=== PATIENT | male | born 1960 | race Caucasian/White ===

== ENCOUNTER 2019-02-07 08:50 | Observation (INO) | payer OTHER ==
[2019-02-05 15:15] LABS: BASOPHILS # (AUTO) 0.1 (0.0-0.1); BASOPHILS % 0.7 % (0.0-1.0); EOSINOPHILS # (AUTO) 0.1 (0.0-0.4); EOSINOPHILS % 0.8 % (0.0-6.0); HEMATOCRIT 43.1 % (38.2-49.6); HEMOGLOBIN 14.6 g/dL (14.0-18.0); LYMPHOCYTES # (AUTO) 2.3 (1.0-3.2); LYMPHOCYTES % 32.5 % (18.0-39.1); MEAN CORPUSCULAR HEMOGLOBIN 31.1 pg (28-32); MEAN CORPUSCULAR HGB CONC 33.9 g/dL (31-35); MEAN CORPUSCULAR VOLUME 91.9 fL (81-99); MONOCYTES # (AUTO) 0.5 (0.2-0.8); MONOCYTES % 6.5 % (4.4-11.3); NEUTROPHILS # (AUTO) 4.2 (2.1-6.9); NEUTROPHILS % 59.2 % (38.7-80.0); PLATELET COUNT 142 x10e3/uL (140-360); RED BLOOD COUNT 4.69 x10e6/uL (4.3-5.7); RED CELL DISTRIBUTION WIDTH 12.9 % (11.7-14.4)
[2019-02-05 15:31] LABS: INR 0.97; PARTIAL THROMBOPLASTIN TIME 27.7 seconds (23.8-35.5); PROTHROMBIN TIME 13.4 seconds (11.9-14.5)
[2019-02-05 15:36] LABS: ANION GAP 9.8 mmol/L (8-16); BLOOD UREA NITROGEN 11 mg/dL (7-26); BUN/CREATININE RATIO 13 (6-25); CALCIUM 8.9 mg/dL (8.4-10.2); CARBON DIOXIDE 27 mmol/L (22-29); CHLORIDE 104 mmol/L (98-107); CREATININE, SERUM 0.86 mg/dL (0.72-1.25); EST GLOMERULAR FILTRATION RATE > 60 ML/MIN (60-); GLUCOSE 81 mg/dL (74-118); POTASSIUM 3.8 mmol/L (3.5-5.1); SODIUM 137 mmol/L (136-145)
--- NOTE | 2019-02-05 15:47 | Diagnostic Imaging Report ---
EXAMINATION: CHEST 2 VIEWS INDICATION: Pre-admit. COMPARISON: None FINDINGS: TUBES and LINES: None. LUNGS: Lungs are well inflated. Lungs are clear. There is no evidence of pneumonia or pulmonary edema. PLEURA: No pleural effusion or pneumothorax. HEART AND MEDIASTINUM: The cardiomediastinal silhouette is unremarkable. BONES AND SOFT TISSUES: No acute osseous abnormality. UPPER ABDOMEN: No free air under the diaphragm. IMPRESSION: No acute radiographic abnormality. Signed by: Dr. Faustino Henderson MD on 02/05/2019 3:43 PM
[~2019-02-07] VITALS: Ht 172.7 cm; Wt 82.6 kg
[~2019-02-07 08:50] MED LIST: ACETAMINOPHEN 1000 MG/100 ML 100 ML IV ONE; DOXYCYCLINE HY100 MG PO; LIDOCAINE HCL (LTA) 4 ML SOLN ONE; SYMBICORT 16010.2 GM
--- OUTSIDE RECORDS SUMMARY | 2019-02-07 08:52 | XMS REPORT | Clinical Summary ---
Author Author [facility] Address Unknown Phone Unavailable Care Team Providers Care Lap Runner Name Role Phone Asked, No Pcp PCP Unavailable Allergies No Known Allergies Medications End Date Status Medication Sig Dispensed Refills Start Date Active meloxicam (MOBIC) 7.5 mg TK 1 T PO QD 0 tablet 9 Active cyclobenzaprine Take 5 mg by 0 (FLEXERIL) 5 mg tablet mouth 3 (three) times a day as needed for muscle spasms. Active Problems Not on file Encounters Care Team Description Date Type Specialty Paul Astudillo MD Cervical pain (Primary Dx) 02/01/2019 Orders Only Orthopedic Surgery Paul Astudillo MD 01/31/2019 Telephone Orthopedic Surgery Paul Astudillo MD Cervical pain (neck) 01/11/2019 Hospital Radiology Encounter Paul Astudillo MD Cervical pain (neck) (Primary Dx) 01/03/2019 Orders Only Orthopedic Surgery Paul Astudillo MD 01/01/2019 Telephone Orthopedic Paul Umanzor MD Cervical pain (neck) 12/20/2018 Hospital Radiology Encounter Robertasandra Maribell Nida 12/19/2018 Telephone Radiology Paul Astudillo MD 12/12/2018 Telephone Orthopedic Surgery Paul Astudillo MD Canceled (Patient) 12/11/2018 Hospital Radiology Encounter Paul Astudillo MD 12/10/2018 Telephone Orthopedic Paul Umanzor MD 12/07/2018 Telephone Orthopedic Surgery Rosa Julio MA 12/07/2018 Telephone Orthopedic Paul Umanzor MD Cervical pain (neck) (Primary Dx) 11/30/2018 Office Visit Orthopedic Paul Umanzor MD 11/27/2018 Documentation Orthopedic Paul Umanzor MD Neck pain 11/26/2018 Hospital Radiology Encounter Paul Astudillo MD 11/21/2018 Telephone Orthopedic Paul Umanzor MD 11/15/2018 Telephone Orthopedic Surgery Paul Astudillo MD Right shoulder pain, unspecified chronicity 11/09/2018 Hospital Radiology Encounter Paul Astudillo MD Neck pain (Primary Dx) 11/09/2018 Orders Only Orthopedic Surgery Paul Astudillo MD 11/09/2018 Telephone Orthopedic Surgery Paul Astudillo MD 11/06/2018 Hospital Radiology Encounter Paul Astudillo MD Right shoulder pain, unspecified chronicity (Primary Dx); Neck pain 11/06/2018 Office Visit Orthopedic Surgery after 02/06/2018 Social History Date Tobacco Use Types Packs/Day Years Used Current Every Day Smoker 0.5 30 Smokeless Tobacco: Never Used Alcohol Use Drinks/Week oz/Week Comments Yes Sex Assigned at Date Recorded Not on file Industry Job Start Date Occupation Not on file Not on file Not on file Travel End Travel History Travel Start No recent travel history available. Last Filed Vital Signs Time Taken Vital Sign Reading 01/11/2019 10:00 AM CDT Blood Pressure 113/80 01/11/2019 9:50 AM CDT Pulse 89 - Temperature - 01/11/2019 9:50 AM CDT Respiratory Rate 16 01/11/2019 9:59 AM CDT Oxygen Saturation 100% - Inhaled Oxygen - Concentration 01/11/2019 8:19 AM CDT Weight 65.8 kg (145 lb) 01/11/2019 8:19 AM CDT Height 172.7 cm (5' 8") 01/11/2019 8:19 AM CDT Body Mass Index 22.05 Plan of Treatment Health Maintenance Due Date Last Done Comments COLON CANCER SCREENING 02/16/2012 SHINGLES VACCINES (#1) 02/16/2012 INFLUENZA VACCINE 05/30/2019 Procedures Comments Procedure Name Priority Date/Time Associated Diagnosis IR EPIDURAL STEROID Routine 01/11/2019 Cervical pain (neck) INJECTION CERVICAL 9:50 AM CDT ESTIMATED GFR Routine 01/11/2019 8:10 AM CDT PROTHROMBIN TIME WITH INR Routine 01/11/2019 8:10 AM CDT PARTIAL THROMBOPLASTIN Routine 01/11/2019 TIME (PTT) 8:10 AM CDT COMPREHENSIVE METABOLIC Routine 01/11/2019 PANEL 8:10 AM CDT HC COMPLETE BLD COUNT Routine 01/11/2019 W/AUTO DIFF 8:10 AM CDT IR EPIDURAL STEROID Routine 12/20/2018 Cervical pain (neck) INJECTION CERVICAL 10:30 AM QUALITY ASSURANCE AUDITOR ESTIMATED GFR Routine 12/20/2018 8:40 AM QUALITY ASSURANCE AUDITOR PARTIAL THROMBOPLASTIN Routine 12/20/2018 TIME (PTT) 8:40 AM QUALITY ASSURANCE AUDITOR PROTHROMBIN TIME WITH INR Routine 12/20/2018 8:40 AM QUALITY ASSURANCE AUDITOR BASIC METABOLIC PANEL Routine 12/20/2018 8:40 AM QUALITY ASSURANCE AUDITOR HC COMPLETE BLD COUNT Routine 12/20/2018 W/AUTO DIFF 8:40 AM QUALITY ASSURANCE AUDITOR MRI CERVICAL SPINE WO Routine 11/26/2018 Neck pain CONTRAST 3:17 PM QUALITY ASSURANCE AUDITOR XR SHOULDER 2+ VW RIGHT Routine 11/06/2018 Right shoulder pain, 2:30 PM QUALITY ASSURANCE AUDITOR unspecified chronicity XR CERVICAL SPINE Routine 11/06/2018 Neck pain COMPLETE W FLEX EXT 2:30 PM QUALITY ASSURANCE AUDITOR OR ARTHROCENTESIS Routine 11/06/2018 Right shoulder pain, ASPIR&/INJ MAJOR JT/BURSA 2:15 PM QUALITY ASSURANCE AUDITOR unspecified chronicity W/O US CT SPINE EXTERNAL STUDY Routine 11/03/2018 7:47 PM QUALITY ASSURANCE AUDITOR after 02/06/2018 Results * IR Epidural Steroid Injection Cervical (01/11/2019 9:50 AM CDT) Only the most recent of 2 results within the time period is included. Narrative Performed At EXAMINATION:IR EPIDURAL STEROID INJECTION CERVICAL [facility] CLINICAL HISTORY:M54.2 Cervicalgia, cervical pain IR EPIDURAL STEROID INJECTION CERVICALimages are submitted OPERATORS: Dr.Nassim Melvin MD CONSENT: The risks and benefits of the procedure were fully explained to the patient in detail and all the patient's questions were answered. The patient agreed to proceed with the procedure and signed an informed consent. TECHNIQUE: The patient was brought to the angio suite and placed on the fluoroscopy table in prone position. The patient's lumbar region was prepped and draped in standard sterile fashion. Sedation was administered by intravenous injection of adequate 0.5 mg of Versed and 25 mcg of fentanyl. Continuous monitoring and recording of the patients vital signs was carried out under my supervision during the procedure and subsequently in the recovery room until discharged. Total sedation time was 6 minutes. Under fluoroscopy, C6-B5wqdys was localized. The skin over that region was infiltrated with 2% buffered lidocaine. Under real-time fluoroscopic guidance, a 20 gauge Tuohy needle was advanced percutaneously into the posterior epidural space in the spinal canal via paramedial intralaminar approach at C6-G0kgloc using sudden loss of resistance technique. After negative aspiration for blood and cerebrospinal fluid, 2 cc of nonionic contrast agent was slowly injected. Epidurogram demonstrates contrast to flow in the epidural space extending from C6-C7. Confirmation of the aspirate of contrast agent within the lumbar epidural space was made with fluoroscopic imaging in AP and lateral views. Subsequently 3 cc of Marcaine 0.5% and 10 milligram of Dexamethasone was injected into the epidural space. The needle was then withdrawn and hemostasis was achieved with adequate pressure. The patient tolerated the procedure well without any immediate complications. TOTAL FLUOROSCOPY TIME: 1.4 minutes. Total fluoroscopic exposure images was 2 images. Total radiation exposure was 7 mGy. Total sedation time was 4 minutes. IMPRESSION: Successful uncomplicated fluoroscopic guided cervical epidural steroid injection at C6-C7 level. [id number] Procedure Note Hm Interface, Radiology Results Incoming - 01/11/2019 10:25 AM CDT EXAMINATION: IR EPIDURAL STEROID INJECTION CERVICAL CLINICAL HISTORY: M54.2 Cervicalgia, cervical pain IR EPIDURAL STEROID INJECTION CERVICAL images are submitted OPERATORS: Dr. Jerardo Charles MD CONSENT: The risks and benefits of the procedure were fully explained to the patient in detail and all the patient's questions were answered. The patient agreed to proceed with the procedure and signed an informed consent. TECHNIQUE: The patient was brought to the angio suite and placed on the fluoroscopy table in prone position. The patient's lumbar region was prepped and draped in standard sterile fashion. Sedation was administered by intravenous injection of adequate 0.5 mg of Versed and 25 mcg of fentanyl. Continuous monitoring and recording of the patients vital signs was carried out under my supervision during the procedure and subsequently in the recovery room until discharged. Total sedation time was 6 minutes. Under fluoroscopy, C6-C7 level was localized. The skin over that region was infiltrated with 2% buffered lidocaine. Under real-time fluoroscopic guidance, a 20 gauge Tuohy needle was advanced percutaneously into the posterior epidural space in the spinal canal via paramedial intralaminar approach at C6-C7 level using sudden loss of resistance technique. After negative aspiration for blood and cerebrospinal fluid, 2 cc of nonionic contrast agent was slowly injected. Epidurogram demonstrates contrast to flow in the epidural space extending from C6-C7. Confirmation of the aspirate of contrast agent within the lumbar epidural space was made with fluoroscopic imaging in AP and lateral views. Subsequently 3 cc of Marcaine 0.5% and 10 milligram of Dexamethasone was injected into the epidural space. The needle was then withdrawn and hemostasis was achieved with adequate pressure. The patient tolerated the procedure well without any immediate complications. TOTAL FLUOROSCOPY TIME: 1.4 minutes. Total fluoroscopic exposure images was 2 images. Total radiation exposure was 7 mGy. Total sedation time was 4 minutes. IMPRESSION: Successful uncomplicated fluoroscopic guided cervical epidural steroid injection at C6-C7 level. [facility]-[id number] Performing Organization Address City/[facility] Phone Number [facility] [address] [place] [address] * Estimated GFR (01/11/2019 8:10 AM CDT) Only the most recent of 2 results within the time period is included. Estimated GFR 83 mL/min/1.73 m2 [facility] Comment: [facility] CatergoryUnitsInte rpretation G1 >=90 Normal or high G2 60-89Mildly decreased [id number] Mildly to moderately decreased [id number] Moderately to severely decreased G4 15-29Severely decreased G5 <15Kidney failure The eGFR was calculated using the Chronic Kidney Disease Epidemiology Collaboration (CKD-EPI) equation. Interpretation is based on recommendations of the National Kidney Foundation-Kidney Disease Outcomes Quality Initiative (NKF-KDOQI) published in 2014. Specimen Plasma specimen Performing Organization Address City/[facility] Phone Number [place] [address] [place] [address] PATHOLOGY AND GENOMIC MEDICINE [place] [address] [address] [place] * Partial thromboplastin time, activated (01/11/2019 8:10 AM CDT) Only the most recent of 2 results within the time period is included. PTT 28.2 23.0 - 36.0 sec [facility] Comment: [facility] PTT therapeutic range for unfractionated heparin is 61.0-112.0 seconds which corresponds to Anti-Xa 0.3-0.7 U/ml. Note:Change in Panic Value The PTT Panic Value is changing from 110 sec. to 100 sec. due to new instrumentation and reagents. Correlation studies have been performed to validate this result. Specimen Blood Performing Organization Address City/[facility]/[place] [address] PATHOLOGY AND [facility] MEDICINE [address] * Prothrombin time with INR (01/11/2019 8:10 AM CDT) Only the most recent of 2 results within the time period is included. Prothrombin time 12.1 11.5 - 14.5 sec [facility] INR 0.92 [facility] Comment: [facility] For patients on anticoagulant therapy, reference ranges below: Indication: INR Value Treatment of Venous Thrombosis, 2.0-3.0 pulmonary emboli, or prophylaxis of a venous thrombosis, or systemic emboli. High dose, high risk patients 3.0-4.5 with mechanical valves. NOTE:INR values over 3.0 are sometimes associated with gastrointestinal hemorrhage, especially values over 4.0. Specimen Blood Performing Organization Address City/[facility]/[place] [address] PATHOLOGY AND [facility] MED[facility] [address] * CBC with platelet and differential (01/11/2019 8:10 AM CDT) Only the most recent of 2 results within the time period is included. WBC 7.1 4.2 - 11.0 k/uL [facility] RBC 5.12 4.04 - 5.86 m/uL [facility] HGB 15.8 13.0 - 17.3 g/dL [facility] HCT 47.6 (H) 34.0 - 45.0 % [facility] MCV 93.0 80.0 - 98.0 fL [facility] MCH 30.9 27.0 - 34.0 pg [facility] MCHC 33.2 31.5 - 36.5 g/dL [facility] RDW - SD 44.2 37.0 - 51.0 fL [facility] MPV 10.2 7.4 - 10.4 fL [facility] Platelet count 147 (L) 150 - 400 k/uL [facility] Nucleated RBC 0.00 /100 WBC [facility] Neutrophils 51.8 36.0 - 66.0 % [facility] Lymphocytes 36.1 24.0 - 44.0 % [facility] Monocytes 9.1 (H) 0.0 - 6.0 % [facility] Eosinophils 2.2 0.0 - 6.0 % [facility] Basophils 0.7 0.0 - 1.2 % [facility] Immature granulocytes 0.1 0.0 - 1.0 % [facility] Specimen Blood Performing Organization Address City/State/Zipcode Phone Number [facility] [place] [id number] PATHOLOGY AND GENOMIC MEDICINE [address] * Comprehensive metabolic panel (01/11/2019 8:10 AM CDT) Sodium 140 135 - 150 mEq/L [facility] Potassium 4.1 3.5 - 5.0 mEq/L [facility] Chloride 102 98 - 112 mEq/L [facility] CO2 28 24 - 31 mmol/L [facility] Anion gap 10@ANIO 7 - 15 mEq/L [facility] BUN 17 7 - 18 mg/dL [facility] Creatinine 1.00 0.70 - 1.20 mg/dL [facility] Glucose 104 (H) 65 - 100 mg/dL [facility] Calcium 9.4 8.3 - 10.2 mg/dL [facility] Protein 7.6 6.3 - 8.3 g/dL [facility] Albumin 4.0 3.5 - 5.0 g/dL [facility] A/G ratio 1.1 0.7 - 3.8 [facility] Alkaline phosphatase 56 0 - 129 U/L [facility] AST 57 (H) 10 - 50 U/L [facility] ALT 81 (H) 5 - 50 U/L [facility] Total bilirubin 0.3 0.2 - 1.2 mg/dL [facility] Specimen Plasma specimen Performing Organization Address City/[facility] Phone Number [place] [address] [place] [address] PATHOLOGY AND GENOMIC MEDICINE [place] [address] [address] * Basic metabolic panel (12/20/2018 8:40 AM QUALITY ASSURANCE AUDITOR) Sodium 141 135 - 150 mEq/L [facility] Potassium 4.3 3.5 - 5.0 mEq/L [facility] Chloride 103 98 - 112 mEq/L [facility] CO2 28 24 - 31 mmol/L [facility] Anion gap 10@ANIO 7 - 15 mEq/L [facility] BUN 21 (H) 7 - 18 mg/dL [facility] Creatinine 1.00 0.70 - 1.20 mg/dL [facility] Glucose 102 (H) 65 - 100 mg/dL [facility] Calcium 9.3 8.3 - 10.2 mg/dL [facility] Specimen Plasma specimen Performing Organization Address City/[facility] Phone Number [place] [phone] [place] [phone] PATHOLOGY AND GENOMIC MEDICINE [place] [address] [place] [address] [facility] * MRI Cervical Spine Wo Contrast (11/26/2018 3:17 PM QUALITY ASSURANCE AUDITOR) Narrative Performed At EXAMINATION: MRI CERVICAL SPINE WO CONTRAST [facility] CLINICAL HISTORY: M54.2 Cervicalgia, neck pain COMPARISON:Cervical spine x-ray dated November 06, 2018 TECHNIQUE: Multiplanar multisequence noncontrast enhanced examination was performed of the cervical spine. FINDINGS: Vertebral body heights are maintained. The cervicomedullary junction is unremarkable. No cord signal abnormality identified. No focal marrow lesions. No masses are present in the visualized prevertebral soft tissues. There are some straightening of the cervical lordosis without spondylolisthesis. Axial images through the disc spaces demonstrate the following: C1-C2: There is narrowing of the atlantoaxial interval with spurring. There is no significant stenosis. C2-C3: No significant posterior disc disease, spinal canal or neural foraminal stenosis. C3-C4: Uncovertebral arthrosis and facet disease results in mild right foraminal narrowing. There is posterior spondylosis of mild canal narrowing. C4-C5: There is posterior spondylosis with there is posterior spondylosis with mild canal narrowing. Uncovertebral arthrosis and facet disease results in minimal right foraminal narrowing. Left foramen is patent. C5-C6: There is loss of disc height with disc bulge with minimal effacement of the ventral thecal sac. Uncovertebral arthrosis and facet disease a results in at least moderate bilateral foraminal narrowing. Correlate for C6 radiculopathies. C6-C7: There is loss of disc height with posterior spondylosis and mild canal narrowing. AP dimension of the spinal canal measures 8 mm. Uncovertebral arthrosis and facet disease a results in moderate severe bilateral foraminal narrowing. Correlate for C7 radiculopathies. C7-T1: There is mild spondylosis without stenosis. No significant posterior disc disease, spinal canal or neural foraminal stenosis at other visualized levels. IMPRESSION: There is multilevel spondylosis most prominent at C5-6 and C6-7 with bilateral foraminal stenosis. Correlate for C6 and C7 radiculopathies to determine clinical significance. [id number] Procedure Note Hm Interface, Radiology Results Incoming - 11/26/2018 3:30 PM QUALITY ASSURANCE AUDITOR EXAMINATION: MRI CERVICAL SPINE WO CONTRAST CLINICAL HISTORY: M54.2 Cervicalgia, neck pain COMPARISON: Cervical spine x-ray dated November 06, 2018 TECHNIQUE: Multiplanar multisequence noncontrast enhanced examination was performed of the cervical spine. FINDINGS: Vertebral body heights are maintained. The cervicomedullary junction is unremarkable. No cord signal abnormality identified. No focal marrow lesions. No masses are present in the visualized prevertebral soft tissues. There are some straightening of the cervical lordosis without spondylolisthesis. Axial images through the disc spaces demonstrate the following: C1-C2: There is narrowing of the atlantoaxial interval with spurring. There is no significant stenosis. C2-C3: No significant posterior disc disease, spinal canal or neural foraminal stenosis. C3-C4: Uncovertebral arthrosis and facet disease results in mild right foraminal narrowing. There is posterior spondylosis of mild canal narrowing. C4-C5: There is posterior spondylosis with there is posterior spondylosis with mild canal narrowing. Uncovertebral arthrosis and facet disease results in minimal right foraminal narrowing. Left foramen is patent. C5-C6: There is loss of disc height with disc bulge with minimal effacement of the ventral thecal sac. Uncovertebral arthrosis and facet disease a results in at least moderate bilateral foraminal narrowing. Correlate for C6 radiculopathies. C6-C7: There is loss of disc height with posterior spondylosis and mild canal narrowing. AP dimension of the spinal canal measures 8 mm. Uncovertebral arthrosis and facet disease a results in moderate severe bilateral foraminal narrowing. Correlate for C7 radiculopathies. C7-T1: There is mild spondylosis without stenosis. No significant posterior disc disease, spinal canal or neural foraminal stenosis at other visualized levels. IMPRESSION: There is multilevel spondylosis most prominent at C5-6 and C6-7 with bilateral foraminal stenosis. Correlate for C6 and C7 radiculopathies to determine clinical significance. [facility]-[id number] Performing Organization Address City/State/Zipcode Phone Number [facility] [address] [place] [address] * XR Shoulder 2+ Vw Right (11/06/2018 2:30 PM QUALITY ASSURANCE AUDITOR) Narrative [facility]formed At [facility] Four views (true AP, axillary, outlet, and Zanca views) of the right shoulder are obtained and reviewed today.The glenohumeral and AC joints appear normal.There is no evidence of dislocation, fracture, or significant degenerative change. No abnormal soft tissue calcifications are seen. Performing Organization Address [facility] Phone Number [employer] [address] [place] [address] * XR Cervical Spine Complete w flex/ext (11/06/2018 2:30 PM QUALITY ASSURANCE AUDITOR) Narrative Performed At [facility] 4 views of the cervical spine.Demonstrates cortical irregularity about the spinous process of C3.No noted instability or malalignment. Degenerative changes including intervertebral narrowing and osteophyte formation. Performing Organization Address [facility] Phone Number [employer] [address] [place] [address] * Large Joint Arthrocentesis: shoulder, R subacromial bursa (11/06/2018 2:15 PM QUALITY ASSURANCE AUDITOR) Narrative Performed At Paul Astudillo MD 11/06/20184:47 PM Large Joint Arthrocentesis: shoulder, R subacromial bursa Consent given by: patient Site marked: site marked Timeout: Immediately prior to procedure a time out was called to verify the correct patient, procedure, equipment, customer support associate and site/side marked as required Supporting Documentation Indications: pain Procedure Details Preparation: Patient was prepped and draped in the usual sterile fashion Ultrasound guided: no Platelet Rich Plasma Used: no PRP Used Location: shoulder - R subacromial bursa Right side: Needle size: 22 G Approach: posterior Right shoulder medications administered: 80 mg methylPREDNISolone acetate 40 mg/mL; 3 mL lidocaine 10 mg/mL (1 %) Patient tolerance: patient tolerated the procedure well with no immediate complications * CT Spine External Study (11/03/2018 7:47 PM QUALITY ASSURANCE AUDITOR) Narrative Performed At This exam was not acquired at a [facility] facility and has not been [facility] interpreted by a [facility] Provider.The exam was imported into our imaging system for comparisons purposes. Performing Organization Address [facility] Phone Number [employer] [address] [place] [address] after 02/06/2018 Insurance Payer Benefit Subscriber ID Type Phone Address Plan / Group CIG[employer] CIGNA OPEN xxxxxxxxxxx O ACCESS/NET WORK Advance Directives Patient has advance care planning documents on file. For more information, kyrie myles contact: Bryan Soriano [address] [place] [address]
--- OUTSIDE RECORDS SUMMARY | 2019-02-07 08:52 | XMS REPORT ---
Author Author [facility] Address Unknown Phone Unavailable Care Team Providers Care Meat Processor Name Role Phone TACHO KING Unavailable Unavailable Problems This patient has no known problems. Allergies, Adverse Reactions, Alerts This patient has no known allergies or adverse reactions. Medications This patient has no known medications. Results Test Description Test Time Test Comments Text Results Atomic Results Result Comments CHEST 2 VIEWS 2019-02-05 15:41:00 [facility] [address] [place] [address] Patient Name: FRANKY ASHER MR #: [id number] : 1960 Age/Sex: 58/M Req #: [id number] Adm Physician: Ordered by: TACHO KIGN MD Report #: [id number] Location: OR Room/Bed: Procedure: [id number] DX/CHEST 2 VIEWS Exam Date: 02/05/19 Exam Time: 1500 REPORT STATUS: Signed EXAMINATION: CHEST 2 VIEWS INDICATION: Pre-admit. COMPARISON: None FINDINGS: TUBES and LINES: None. LUNGS: Lungs are well inflated. Lungs are clear. There is no evidence of pneumonia or pulmonary edema. PLEURA: No pleural effusion or pneumothorax. HEART AND MEDIASTINUM: The cardiomediastinal silhouette is unremarkable. BONES AND SOFT TISSUES: No acute osseous abnormality. UPPER ABDOMEN: No free air under the diaphragm. IMPRESSION: No acute radiographic abnormality. Signed by: Dr. Larry Wolff MD on 02/05/2019 3:43 PM Dictated By: LARRY WOLFF MD [id number] Transcribed By: MAYDA on 02/05/19 154 COPY TO: TACHO KING MD
[2019-02-07] MEDS ORDERED: CEFAZOLIN SOD 2 GM/D5W 50ML 50 ML IV ONE (09:20)
[2019-02-07] MEDS ORDERED: BACITRACIN 50,000 UNIT VIAL ONE (11:17)
[2019-02-07] MEDS ORDERED: BUPIVACAINE 0.5%/EPI 30 ML SDV INJ ONE (11:17)
[2019-02-07] MEDS ORDERED: GELATIN SPONGE 12-7MM ONE (11:17)
[2019-02-07] MEDS ORDERED: THROMBIN FOR SOLN 5,000 UNIT VIAL ONE (11:17)
[2019-02-07] MEDS ORDERED: LIDOCAINE HCL (LTA) 4 ML SOLN ONE (11:50)
[2019-02-07] MEDS ORDERED: CARISOPRODOL 350 MG TAB PO PRN (13:15)
[2019-02-07] MEDS ORDERED: MORPHINE SULFATE 5 MG/ML VIAL IM PRN (13:15)
[2019-02-07] MEDS ORDERED: ONDANSETRON HCL INJ 2MG/ML 2ML 2 MG/ML VIAL IV PRN (13:15)
[2019-02-07] MEDS ORDERED: ACETAMINOPHEN 325 MG TAB PO PRN (13:15)
[2019-02-07] MEDS ORDERED: CEPACOL SORE THROAT LOZENGES PO PRN (13:15)
[2019-02-07] MEDS ORDERED: ZOLPIDEM TARTRATE 5 MG TAB PO PRN (13:15)
[2019-02-07] MEDS ORDERED: HYDROMORPHONE 2MG/ML 2 MG/ML ML IV PRN (13:15)
[2019-02-07] MEDS ORDERED: MAGNESIUM/ALUMINUM/SIMETHICONE 30 ML UDC PO PRN (13:15)
[2019-02-07] MEDS ORDERED: PROMETHAZINE HCL (IM) 25 MG/ML VIAL IM PRN (13:15)
--- OUTSIDE RECORDS SUMMARY | 2019-02-07 13:48 | XMS REPORT | Clinical Summary ---
Author Author [facility] Address Unknown Phone Unavailable Care Team Providers Care Claims Collector Name Role Phone Asked, No Pcp PCP [...] Cervical pain (neck) INJECTION CERVICAL 10:30 AM RETENTION REPRESENTATIVE ESTIMATED GFR Routine 12/20/2018 8:40 AM RETENTION REPRESENTATIVE PARTIAL THROMBOPLASTIN Routine 12/20/2018 TIME (PTT) 8:40 AM RETENTION REPRESENTATIVE PROTHROMBIN TIME WITH INR Routine 12/20/2018 8:40 AM RETENTION REPRESENTATIVE BASIC METABOLIC PANEL Routine 12/20/2018 8:40 AM RETENTION REPRESENTATIVE HC COMPLETE BLD COUNT Routine 12/20/2018 W/AUTO DIFF 8:40 AM RETENTION REPRESENTATIVE MRI CERVICAL SPINE WO Routine 11/26/2018 Neck pain CONTRAST 3:17 PM RETENTION REPRESENTATIVE XR SHOULDER 2+ VW RIGHT Routine 11/06/2018 Right shoulder pain, 2:30 PM RETENTION REPRESENTATIVE unspecified chronicity XR CERVICAL SPINE Routine 11/06/2018 Neck pain COMPLETE W FLEX EXT 2:30 PM RETENTION REPRESENTATIVE NM ARTHROCENTESIS Routine 11/06/2018 Right shoulder pain, ASPIR&/INJ MAJOR JT/BURSA 2:15 PM RETENTION REPRESENTATIVE unspecified chronicity W/O US CT SPINE EXTERNAL STUDY Routine 11/03/2018 7:47 PM RETENTION REPRESENTATIVE after 02/06/2018 Results * IR Epidural Steroid [...] sedation time was 6 minutes. Under fluoroscopy, C6-D9pmsxs was localized. The skin over that region was infiltrated with 2% buffered lidocaine. Under real-time fluoroscopic guidance, a 20 gauge Tuohy needle was advanced percutaneously into the posterior epidural space in the spinal canal via paramedial intralaminar approach at C6-P5zzbyq using sudden loss of resistance technique. After [...] cervical epidural steroid injection at C6-C7 level. [id number] Procedure Note Hm Interface, Radiology Results Incoming [...] cervical epidural steroid injection at C6-C7 level. [id number] Performing Organization Address City/[facility] Phone Number [facility] [address] [place] [address] * Estimated GFR (01/11/2019 8:10 AM CDT) Only the most recent of 2 results within the time period is included. Estimated GFR 83 mL/min/1.73 m2 [facility] Comment: [facility] CatergoryUnitsInte rpretation G1 >=90 Normal or high G2 60-89Mildly decreased [id number] Mildly to moderately decreased [id number] Moderately to severely decreased G4 15-29Severely decreased G5 <15Kidney failure The eGFR was calculated using the Chronic Kidney Disease Epidemiology Collaboration (CKD-EPI) equation. Interpretation is based on recommendations of the National Kidney Foundation-Kidney Disease Outcomes Quality Initiative (NKF-KDOQI) published in 2014. Specimen Plasma specimen Performing Organization Address City/[facility] Cent[facility]ode Phone Number [place] [address] [place] [address] PATHOLOGY AND GENOMIC MEDICINE [place] [address] [address] [place] * Partial thromboplastin time, activated (01/11/2019 8:10 AM CDT) Only the most recent of 2 results within the time period is included. PTT 28.2 23.0 - 36.0 sec [facility] Comment: [facility] PTT therapeutic range for unfractionated heparin is 61.0-112.0 seconds which corresponds to Anti-Xa 0.3-0.7 U/ml. Note:Change in Panic Value The PTT Panic Value is changing from 110 sec. to 100 sec. due to new instrumentation and reagents. Correlation studies have been performed to validate this result. Specimen Blood Performing Organization Address City/[facility]/[place] [address] PATHOLOGY AND [facility] [address] * Prothrombin time with INR (01/11/2019 8:10 AM CDT) Only the most recent of 2 results within the time period is included. Prothrombin time 12.1 11.5 - 14.5 sec [facility] INR 0.92 [facility] Comment: [facility] For patients on anticoagulant therapy, reference ranges below: Indication: INR Value Treatment of Venous Thrombosis, 2.0-3.0 pulmonary emboli, or prophylaxis of a venous thrombosis, or systemic emboli. High dose, high risk patients 3.0-4.5 with mechanical valves. NOTE:INR values over 3.0 are sometimes associated with gastrointestinal hemorrhage, especially values over 4.0. Specimen Blood Performing Organization Address City/[facility]/[place] [address] PATHOLOGY AND [facility] [address] * CBC with platelet and differential (01/11/2019 8:10 AM CDT) Only the most recent of 2 results within the time period is included. WBC 7.1 4.2 - 11.0 k/uL [facility] RBC 5.12 4.04 - 5.86 m/uL [facility] HGB 15.8 13.0 - 17.3 g/dL [facility] HCT 47.6 (H) 34.0 - 45.0 % [facility] MCV 93.0 80.0 - 98.0 fL [facility] MCH 30.9 27.0 - 34.0 pg [facility] MCHC 33.2 31.5 - 36.5 g/dL [facility] RDW - SD 44.2 37.0 - 51.0 fL [facility] MPV 10.2 7.4 - 10.4 fL [facility] Platelet count 147 (L) 150 - 400 k/uL [facility] Nucleated RBC 0.00 /100 WBC [facility] Neutrophils 51.8 36.0 - 66.0 % [facility] Lymphocytes 36.1 24.0 - 44.0 % [facility] Monocytes 9.1 (H) 0.0 - 6.0 % [facility] Eosinophils 2.2 0.0 - 6.0 % [facility] Basophils 0.7 0.0 - 1.2 % [facility] Immature granulocytes 0.1 0.0 - 1.0 % [facility] Specimen Blood Performing Organization Address City/State/Zipcode Phone Number [facility] [place] [phone] PATHOLOGY AND GENOMIC MEDICINE [address] * Comprehensive metabolic panel (01/11/2019 8:10 AM CDT) Sodium 140 135 - 150 mEq/L [facility] Potassium 4.1 3.5 - 5.0 mEq/L [facility] Chloride 102 98 - 112 mEq/L [facility] CO2 28 24 - 31 mmol/L [facility] Anion gap 10@ANIO 7 - 15 mEq/L [facility] BUN 17 7 - 18 mg/dL [facility] Creatinine 1.00 0.70 - 1.20 mg/dL [facility] Glucose 104 (H) 65 - 100 mg/dL [facility] Calcium 9.4 8.3 - 10.2 mg/dL [facility] Protein 7.6 6.3 - 8.3 g/dL [facility] Albumin 4.0 3.5 - 5.0 g/dL [facility] A/G ratio 1.1 0.7 - 3.8 [facility] Alkaline phosphatase 56 0 - 129 U/L [facility] AST 57 (H) 10 - 50 U/L [facility] ALT 81 (H) 5 - 50 U/L [facility] Total bilirubin 0.3 0.2 - 1.2 mg/dL [facility] Specimen Plasma specimen Performing Organization Address City/[facility] Phone Number [place] [address] [place] [address] PATHOLOGY AND GENOMIC MEDICINE [place] [address] [address] * Basic metabolic panel (12/20/2018 8:40 AM RETENTION REPRESENTATIVE) Sodium 141 135 - 150 mEq/L [facility] Potassium 4.3 3.5 - 5.0 mEq/L [facility] Chloride 103 98 - 112 mEq/L [facility] CO2 28 24 - 31 mmol/L [facility] Anion gap 10@ANIO 7 - 15 mEq/L [facility] BUN 21 (H) 7 - 18 mg/dL [facility] Creatinine 1.00 0.70 - 1.20 mg/dL [facility] Glucose 102 (H) 65 - 100 mg/dL [facility] Calcium 9.3 8.3 - 10.2 mg/dL [facility] Specimen Plasma specimen Performing Organization Address City/[facility]ode Phone Number [place] [phone] [place] [phone] PATHOLOGY AND GENOMIC MEDICINE [place] [address] [place] [address] [facility] * MRI Cervical Spine Wo Contrast (11/26/2018 3:17 PM RETENTION REPRESENTATIVE) Narrative Performed At EXAMINATION: MRI CERVICAL SPINE [...] and C7 radiculopathies to determine clinical significance. [id number] Procedure Note Hm Interface, Radiology Results Incoming - 11/26/2018 3:30 PM RETENTION REPRESENTATIVE EXAMINATION: MRI CERVICAL SPINE WO CONTRAST CLINICAL [...] and C7 radiculopathies to determine clinical significance. [facility]-[id number] Performing Organization Address City/State/Zipcode Phone Number [facility] [address] [place] [address] * XR Shoulder 2+ Vw Right (11/06/2018 2:30 PM RETENTION REPRESENTATIVE) Narrative [facility]formed At [facility] Four views (true AP, axillary, outlet, and Zanca views) of the right shoulder are obtained and reviewed today.The glenohumeral and AC joints appear normal.There is no evidence of dislocation, fracture, or significant degenerative change. No abnormal soft tissue calcifications are seen. Performing Organization Address [facility] Centercode Phone Number [employer] [address] [place] [address] * XR Cervical Spine Complete w flex/ext (11/06/2018 2:30 PM RETENTION REPRESENTATIVE) Narrative Performed At [facility] 4 views of the cervical spine.Demonstrates cortical irregularity about the spinous process of C3.No noted instability or malalignment. Degenerative changes including intervertebral narrowing and osteophyte formation. Performing Organization Address [facility] Phone Number [employer] [address] [place] [address] * Large Joint Arthrocentesis: shoulder, R subacromial bursa (11/06/2018 2:15 PM RETENTION REPRESENTATIVE) Narrative Performed At Paul Astudillo MD 11/06/20184:47 PM Large Joint Arthrocentesis: shoulder, R subacromial bursa Consent given by: patient Site marked: site marked Timeout: Immediately prior to procedure a time out was called to verify the correct patient, procedure, equipment, support services coordinator and site/side marked as required Supporting Documentation [...] CT Spine External Study (11/03/2018 7:47 PM RETENTION REPRESENTATIVE) Narrative Performed At This exam was not acquired at a [facility] facility and has not been [facility] interpreted by a [facility] Provider.The exam was imported into our imaging system for comparisons purposes. Performing Organization Address [facility]ode Phone Number [employer] [address] [place] [address] after 02/06/2018 Insurance Payer Benefit Subscriber ID Type Phone Address Plan / Group CIGNA CIGNA OPEN xxxxxxxxxxx O ACCESS/NET WORK Advance Directives Patient has advance care planning documents on file. For more information, kyrie myles contact: Bryan Soriano [address] [place] [address]
[2019-02-07] MEDS ORDERED: CEFAZOLIN SOD 1 GM/NS 50ML 50 ML IV SCH (14:00)
--- NOTE | 2019-02-07 14:30 | NUR ---
Received patient from PACU. Patient is A&Ox3. Ambulated to bed. Lung sounds clear. Bowel sounds active. Skin intact. IV Right wrist asymptomatic, intact, and patent running LR 120 mL/hr. Kamran hose and SCDs in place. Patient reports sharp pain of 8/10 in neck. Patient ambulated to bathroom with assistance of staff and , steady gait noted. Dressing on neck is clean and dry. Neck brace in place. Will continue to monitor.
[2019-02-07 14:51] VITALS: BP 129/60
[2019-02-07] MEDS ORDERED: MORPHINE SULFATE INJ 4 MG/ML INJ 1ML IM PRN (15:00)
[2019-02-07] MEDS: LACTATED RINGER'S 1,000 ML IV SCH ×2 (15:43→21:32)
[2019-02-07 15:44] VITALS: BP 129/60
[2019-02-07 15:47] VITALS: BP 129/60
[2019-02-07] MEDS ORDERED: IBUPROFEN 800 MG/250 ML BAG IV ONE (18:07)
[2019-02-07] MEDS ORDERED: LIDOCAINE HCL 2% LOCAL INJ 5 ML SDV VIAL INJ ONE (18:07)
[2019-02-07] MEDS ORDERED: PROPOFOL IV EMULSION 10 MG/ML 20 ML VIAL ONE (18:07)
[2019-02-07] MEDS ORDERED: DEXAMETHASONE SOD PHOS INJ 4 MG/ML VIAL ONE (18:07)
[2019-02-07] MEDS ORDERED: GLYCOPYRROLATE INJ 1MG/ 5 ML SYR ONE (18:07)
[2019-02-07] MEDS ORDERED: SEVOFLURANE INHAL SOLN 250 ML PEN BTL ONE (18:07)
[2019-02-07] MEDS ORDERED: ONDANSETRON HCL INJ 2MG/ML 2ML 2 MG/ML VIAL ONE (18:07)
[2019-02-07] MEDS ORDERED: ROCURONIUM BROMIDE 10 MG/ML 5ML VIAL ONE (18:07)
[2019-02-07] MEDS ORDERED: NEOSTIGMINE 5 MG/5ML SYR ONE (18:07)
[2019-02-07] MEDS ORDERED: LIDOCAINE HCL 2% JELLY 5 ML TUBE ONE (18:07)
[2019-02-07] MEDS ORDERED: FENTANYL CITRATE/PF 100MCG/2 ML INJ ONE (18:12)
[2019-02-07] MEDS ORDERED: MIDAZOLAM HCL 2 MG/2 ML VIAL ONE (18:12)
--- NOTE | 2019-02-07 19:20 | NUR ---
report received walking round complete
--- NOTE | 2019-02-07 19:58 | Operative Report ---
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 PROCEDURES: 1. C5-6 anterior cervical diskectomy and microsurgical osteophyte resection and allograft fusion, 60332. 2. C6-7 anterior cervical diskectomy and microsurgical osteophyte resection and allograft fusion, 10609. 3. Preparation of iliac crest tricortical allograft, 26910. 4. C5-6 and C6-7 anterior cervical plating with Synthes CSLP plate, [id number]. ANESTHESIA: General. INDICATIONS: The patient is a 58-year-old man, who presents with C5-6 and C6-7 spondylosis and disk herniations and foraminal stenosis with right-sided cervical radiculopathy. He was taken to operating room for anterior cervical decompression and fusion. DESCRIPTION OF PROCEDURE: After induction of general anesthesia, the patient was placed on the operating table in supine position. The right side of neck was prepped and draped in sterile fashion. The fluoroscopic C-arm was positioned in cross-table lateral orientation. The transverse incision was created on the right side of the neck superimposed on C6 vertebral body as determined by fluoroscopy. The platysma was divided in line with incision. A subplatysmal dissection was carried out and avascular plane of dissection was developed medially in sternocleidomastoid muscle and was followed medially to the carotid sheath to the anterior border of the cervical spine. The deep cervical fascia was opened and the esophagus was retracted to the left. The attachments of longus colli muscles to the anterolateral aspects of vertebral bodies of C5, C6, and C7 were divided. The anterior longitudinal ligament was resected. [place] posts were inserted in C5 and C7. The [place] distractor was used to distract both disk spaces simultaneously. The anterior annuli of disk were incised with #11 blade. The contents of both disks were thoroughly evacuated with angled curettes and pituitary rongeurs. The posterior osteophytes were meticulously drilled with a 2 mm cutting bur on a high-speed drill until they were completely removed. The posterior anulus of the disk, herniated disk material, and the posterior longitudinal ligament was resected layer by layer until the dura was fully exposed and decompressed. The medial aspects of the uncinate processes were resected bilaterally to further expose any compressed origins of the corresponding nerve roots. After satisfactory decompression had been achieved, the endplates were prepared for fusion. Two pieces of tricortical iliac crest allograft were cut to size and shapes of the disk spaces and inserted into the disk spaces under distraction and fluoroscopic guidance. The distraction was released and distraction posts were removed. The Synthes CSLP variable type anterior cervical plate was selected and affixed to the vertebral bodies of C5, C6, and C7 with three pairs of 14 x 4.35 mm screws. All screw holes were first drilled and tapped on the lateral fluoroscopic guidance. All screws were locked with the appropriate locking screws and excellent construct was obtained. The wound was copiously irrigated with bacitracin solution. Meticulous hemostasis was secured. The retractor was removed. The platysma was closed with 3-0 Vicryl sutures. The skin was closed with 4-0 Monocryl sutures in subcuticular fashion. Steri-Strips and dressing were applied. The patient was awakened, extubated, and taken to postanesthesia care in stable condition. No intraoperative complications were encountered. Estimated blood losswas 30 mL. Fer Raymundo MD PP/[facility]AQUIN[facility] /[id number]
[2019-02-07 20:00] VITALS: BP 101/62
[2019-02-07] MEDS: CEFAZOLIN SOD 1 GM/NS 50ML 50 ML IV SCH (20:55)
[2019-02-07] MEDS: OXYCODONE/ACETAMINOPHEN 5-325 1 EACH TABLET PO PRN (22:16)
[2019-02-08] VITALS: BP 101/59
[2019-02-08 04:00] VITALS: BP 99/62
[2019-02-08] MEDS: CEFAZOLIN SOD 1 GM/NS 50ML 50 ML IV SCH (04:59)
[2019-02-08] MEDS: OXYCODONE/ACETAMINOPHEN 5-325 1 EACH TABLET PO PRN (05:11)
[2019-02-08] MEDS: LACTATED RINGER'S 1,000 ML IV SCH (05:45)
--- NOTE | 2019-02-08 07:30 | NUR ---
report given and walking rounds complete
--- NOTE | 2019-02-08 07:44 | Diagnostic Imaging Report ---
EXAM: Cervical spine radiographs-2 views INDICATION: Status post cervical fusion. COMPARISON: None FINDINGS: C1 through C7 are visualized on the lateral view. There are postsurgical changes status post anterior fusion of C5-C7 with plate and bilateral screw construct. There is intervertebral graft material at C5-C6 and C6-C7. Hardware appears intact. There is prevertebral soft tissue edema and air, consistent with recent surgery. There is straightening of the cervical lordosis. No evidence of acute fracture. There are mild degenerative disc and moderate facet degenerative changes. IMPRESSION: Recent post surgical findings status post C5-C7 anterior cervical fusion. Signed by: Dr. Faustino Henderson MD on 02/08/2019 7:41 AM
[2019-02-08 08:56] VITALS: BP 109/72
[2019-02-08] MEDS ORDERED: NORCO 7.5-3251 EACH PO (10:48)
[2019-02-08 11:07] VITALS: BP 109/72
== END 2019-02-08 12:01 | disposition home or self-care (01) ==
LOC: OR 08:50 → PACU V 13:12 → IMCU 14:35
PROVIDERS: ADMIT Neurological Surgery; ATTEND Neurological Surgery
DX: M54.12 Radiculopathy, cervical region (principal); M47.22 Other spondylosis with radiculopathy, cervical region; J44.9 Chronic obstructive pulmonary disease, unspecified
CPT/HCPCS: 20938; 22551; 22552; 22853 ×2; 36415; 71046; 72040; 77003; 80048; 85025; 85610; 85730; 86850; 86900; 88304; 93005; C1713 ×3; C1768; G0378 ×2; J0131; J0690 ×3; J1100; J2001 ×2; J2250; J2405; J2704; J3490; J7121; L8699

== ENCOUNTER → 2019-03-07 | Outpatient (CLI) | payer OTHER ==
[~2019-03-07] MED LIST changes: -ACETAMINOPHEN 1000 MG/100 ML 100 ML IV ONE; -LIDOCAINE HCL (LTA) 4 ML SOLN ONE; +NORCO 7.5-3251 EACH PO
--- NOTE | 2019-03-07 09:14 | Diagnostic Imaging Report ---
EXAM: Cervical spine radiographs-4 views INDICATION: Evaluate fusion status. COMPARISON: Cervical spine radiographs 02/08/2019. FINDINGS: C1 through C7 are visualized on the lateral view. There are postsurgical changes status post anterior fusion of C5-C7 with plate and bilateral screw construct. There is intervertebral graft material at C5-C6 and C6-C7. Hardware appears intact. Interval resolution of previously noted pre-vertebral soft tissue edema and air. There is straightening of the cervical lordosis. No change in alignment on flexion and extension views. No evidence of acute fracture. There are mild degenerative disc and moderate facet degenerative changes. IMPRESSION: Status post C5-C7 anterior cervical fusion with unremarkable alignment. Signed by: Dr. Faustino Henderson MD on 03/07/2019 9:11 AM
== END ==
LOC: RAD 08:20
PROVIDERS: ATTEND Neurological Surgery
DX: M50.20 Other cervical disc displacement, unspecified cervical region (principal); Z98.1 Arthrodesis status
CPT/HCPCS: 72050